=== PATIENT | female | born 1940 | race Caucasian/White ===

== ENCOUNTER 2018-04-02 09:34 | Emergency (ER) | payer MEDICARE ==
[~2018-04-02] VITALS: Ht 167.6 cm; Wt 58.2 kg
[2018-04-02 10:12] LABS: BASOPHILS % (AUTO) 0.2 % (0.0-2.0); EOSINOPHILS % (AUTO) 0.2 % (1.0-6.0); HEMATOCRIT 42.5 % (36-46); HEMOGLOBIN 14.5 g/dL (12.0-16.0); LYMPHOCYTES # (AUTO) 1.7 K/uL (1.0-4.8); LYMPHOCYTES % (AUTO) 14.8 % (22.0-44.0); MEAN CORPUSCULAR HEMOGLOBIN 30.5 pg (26.0-34.0); MEAN CORPUSCULAR HGB CONC 34.1 G/dL (31.0-37.0); MEAN CORPUSCULAR VOLUME 90 fL (80-100); MONOCYTES # (AUTO) 1.2 K/uL (0.1-1.0); MONOCYTES % (AUTO) 10.7 % (2.0-9.0); NEUTROPHILS # (AUTO) 8.2 K/uL (1.8-7.7); NEUTROPHILS % (AUTO) 74.1 % (40.0-70.0); PLATELET COUNT (AUTO) 292 K/uL (150-450); RED BLOOD CELL COUNT(AUTO) 4.75 MIL/uL (4.00-5.20)
[2018-04-02 10:20] LABS: ANION GAP 13 mmol/L (8-16); CALCIUM, TOTAL 10.4 mg/dL (8.8-10.5); CARBON DIOXIDE 22 mmol/L (22-29); CHLORIDE 99 mmol/L (98-107); CREATININE 0.52 mg/dL (0.60-1.30); GLUCOSE,RANDOM 181 mg/dL (70-110); POTASSIUM 5.2 mmol/L (3.5-5.1); SODIUM SERUM 134 mmol/L (136-145); UREA NITROGEN, BLOOD 17 mg/dL (7-18)
[2018-04-02 10:22] LABS: GLOMERULAR FILTR. RATE CALC > 60 mL/min (>60)
[2018-04-02 10:26] LABS: ALANINE AMINOTRANSFERASE 21 U/L (12-78); ALBUMIN 4.1 g/dL (3.4-5.0); ALKALINE PHOSPHATASE 84 U/L (46-116); ASPARTATE AMINOTRANSFERASE 33 U/L (15-37); BILIRUBIN,TOTAL 1.6 mg/dL (0.1-1.0); TOTAL PROTEIN, SERUM 8.1 g/dL (6.4-8.2)
[2018-04-02 10:38] LABS: B-TYPE NATRIURETIC PEPTIDE 45 pg/mL (0-100)
[2018-04-02] MEDS ORDERED: LORazepam 1 MG TABLET PO ONE (10:45)
[2018-04-02] MEDS ORDERED: ALBUTEROL SULFATE 2.5 MG/0.5 ML NEB SOLUTION NEB ONE (11:00)
[2018-04-02] MEDS ORDERED: IPRATROPIUM BROMIDE 0.5 MG/2.5 ML NEB SOLUTION NEB ONE (11:00)
[2018-04-02 13:19] VITALS: BP 141/62
== END 2018-04-02 13:25 | disposition home or self-care (01) ==
LOC: EMS 09:35
DX: J44.9 Chronic obstructive pulmonary disease, unspecified (principal); F41.9 Anxiety disorder, unspecified; R50.9 Fever, unspecified; Z90.710 Acquired absence of both cervix and uterus
CPT/HCPCS: 93005; 94640

== ENCOUNTER 2020-02-05 15:03 | Emergency (ER) | payer MEDICARE ==
[~2020-02-05] VITALS: Ht 167.6 cm; Wt 48.2 kg
[2020-02-05 15:13] VITALS: BP 135/45
== END 2020-02-05 17:15 | disposition home or self-care (01) ==
LOC: EMS 15:03
DX: R09.81 Nasal congestion (principal); F17.210 Nicotine dependence, cigarettes, uncomplicated; Z20.828 Contact with and (suspected) exposure to other viral communicable diseases
CPT/HCPCS: 99283; U0003

== ENCOUNTER 2022-04-28 10:07 | Emergency (ER) | payer MEDICARE, MEDICAID ==
[~2022-04-28] VITALS: Ht 160 cm; Wt 47.7 kg
[2022-04-28] MEDS ORDERED: MIDO2.5T PO (10:14)
[2022-04-28] MEDS ORDERED: CALC-1255 PO (10:14)
[2022-04-28] MEDS ORDERED: IBUP-2076 PO (10:14)
[2022-04-28] MEDS ORDERED: BROM3DRO OU (10:14)
[2022-04-28] MEDS ORDERED: ATOR10TA69 PO (10:14)
[2022-04-28] MEDS ORDERED: ACET-66 PO (10:14)
[2022-04-28] MEDS ORDERED: [UNRECOGNIZED DRUG - CODE] TP (10:14)
[2022-04-28] MEDS ORDERED: POLY15DR16 OU (10:14)
[2022-04-28] MEDS ORDERED: ALEN70TA80 PO (10:14)
[2022-04-28] MEDS ORDERED: OLOP2.5D16 OU (10:14)
[2022-04-28] MEDS ORDERED: CHOL500013 PO (10:14)
[2022-04-28] MEDS ORDERED: FOLI-151 PO (10:14)
[2022-04-28 11:21] LABS: GLUCOSE,POINT OF CARE 98 MG/DL (70-110)
[2022-04-28 11:37] LABS: BASOPHILS % (AUTO) 0.5 % (0.0-2.0); EOSINOPHILS % (AUTO) 1.1 % (1.0-6.0); HEMATOCRIT 41.3 % (36-46); HEMOGLOBIN 13.7 g/dL (12.0-16.0); LYMPHOCYTES # (AUTO) 1.2 K/uL (1.0-4.8); LYMPHOCYTES % (AUTO) 24.9 % (22.0-44.0); MEAN CORPUSCULAR HEMOGLOBIN 30.1 pg (26.0-34.0); MEAN CORPUSCULAR HGB CONC 33.3 G/dL (31.0-37.0); MEAN CORPUSCULAR VOLUME 91 fL (80-100); MONOCYTES # (AUTO) 0.4 K/uL (0.1-1.0); MONOCYTES % (AUTO) 8.7 % (2.0-9.0); NEUTROPHILS # (AUTO) 3.2 K/uL (1.8-7.7); NEUTROPHILS % (AUTO) 64.8 % (40.0-70.0); PLATELET COUNT (AUTO) 239 K/uL (150-450); RED BLOOD CELL COUNT(AUTO) 4.56 MIL/uL (4.00-5.20); RED CELL DISTRIBUTION WIDTH 15.1 % (11.5-14.5)
[2022-04-28 11:41] LABS: ANION GAP 10 mmol/L (8-16); CALCIUM, TOTAL 9.4 mg/dL (8.8-10.5); CARBON DIOXIDE 25 mmol/L (22-29); CHLORIDE 105 mmol/L (98-107); CREATININE 0.55 mg/dL (0.60-1.30); GLOMERULAR FILTR. RATE CALC > 60 mL/min (>60); GLUCOSE,RANDOM 95 mg/dL (70-110); POTASSIUM 4.4 mmol/L (3.5-5.1); SODIUM SERUM 140 mmol/L (136-145); UREA NITROGEN, BLOOD 16 mg/dL (7-18)
[2022-04-28] MEDS ORDERED: MORPHINE SULFATE 4 MG/ML SYRINGE IVP ONE (11:45)
[2022-04-28] MEDS ORDERED: ONDANSETRON HCL 4 MG/2 ML VIAL IVP ONE (11:45)
[2022-04-28 11:55] LABS: ALANINE AMINOTRANSFERASE 14 U/L (12-78); ALBUMIN 3.7 g/dL (3.4-5.0); ALKALINE PHOSPHATASE 74 U/L (46-116); ASPARTATE AMINOTRANSFERASE 26 U/L (15-37); BILIRUBIN,TOTAL 0.4 mg/dL (0.1-1.0); TOTAL PROTEIN, SERUM 7.4 g/dL (6.4-8.2)
[2022-04-28 12:16] LABS: INR 1.1 (0.9-1.1); PROTHROMBIN TIME 11.2 SEC (9.4-11.6)
[2022-04-28 12:29] LABS: COVID AG,FIA SOURCE NASAL SWAB
[2022-04-28 20:04] VITALS: BP 134/61
== END 2022-04-28 21:01 | disposition short-term general hospital (02) ==
LOC: EMS 10:25
DX: I62.9 Nontraumatic intracranial hemorrhage, unspecified (principal); E78.00 Pure hypercholesterolemia, unspecified; F17.210 Nicotine dependence, cigarettes, uncomplicated; Z90.49 Acquired absence of other specified parts of digestive tract; Z90.710 Acquired absence of both cervix and uterus; Z98.890 Other specified postprocedural states; Z20.822 Contact with and (suspected) exposure to COVID-19; W19.XXXA Unspecified fall, initial encounter; Y93.89 Activity, other specified; Y92.89 Other specified places as the place of occurrence of the external cause; Y99.8 Other external cause status
CPT/HCPCS: 99291; 96374; 70450; 71045; 92610; 96375; 87426; 80053; 82962; 84484; 85025; 85610; 85730; 86850; 86900; 86901; 36415; 82948; 93005; J2270; J2405